=== PATIENT | female | born 1980 | race American Indian/Alaskan Native ===

== ENCOUNTER 2017-03-14 08:49 | Emergency (ER) | payer BC, OTHER ==
[2017-03-14 09:25] LABS: Basophils % (Auto) 0.4 % (0.0-1.8); Hematocrit 38.1 % (30.3-42.9); Hemoglobin 12.4 gm/dl (10.1-14.3); Mean Corpuscular HGB Conc 33 % (30-34); Mean Corpuscular Hemoglobin 28 pg (28-32); Mean Corpuscular Volume 85 fl (79-97); Platelet Count 301 K/mm3 (140-440); Red Blood Count 4.46 M/mm3 (3.65-5.03); Red Cell Distribution Width 15.2 % (13.2-15.2); White Blood Count 6.9 K/mm3 (4.5-11.0)
[2017-03-14 09:44] LABS: Anion Gap 20 mmol/L; BUN/Creatinine Ratio 18.33; Blood Urea Nitrogen 11 mg/dL (7-17); Calcium 8.6 mg/dL (8.4-10.2); Carbon Dioxide 20 mmol/L (22-30); Chloride 102.5 mmol/L (98-107); Glucose 109 mg/dL (65-100); Potassium 4.1 mmol/L (3.6-5.0); Sodium 138 mmol/L (137-145)
[2017-03-14 11:27] VITALS: BP 122/84
[2017-03-14] MEDS ORDERED: TORADOL IV ONE (11:52)
--- NOTE | 2017-03-14 11:56 | Emergency Department Report ---
ED Chest Pain HPI - General Chief Complaint: Chest Pain Stated Complaint: CHEST PAIN Time Seen by Provider: 03/14/17 11:47 Source: patient Mode of arrival: Ambulatory Limitations: No Limitations - History of Present Illness Initial Comments: Mrs. Melvin is a 37 years old female coming today with chest pain described her pain is mainly sharp right side and the left side too. She had the same episode last week she applied this is maybe from her energy drink she stop her energy drink but the symptoms remain. she denied any shortness of breath no nausea no vomiting no cough recently she stated that her work requires a lot of pushing and pulling. No other complaint at this moment MD Complaint: chest pain -: week(s) Onset: during exertion Pain Radiation: none Severity scale (0 -10): 6 Quality: sharp Consistency: intermittent Improves With: remaining still Worsens With: inspiration, movement Treatments Prior to Arrival: none - Related Data Previous Rx's Medication Instructions Recorded Last Taken Type Ondansetron [Zofran] 4 mg PO Q6HR PRN #12 tablet 10/27/13 03/06/14 08:00 Rx Ferrous Sulfate [Feosol 325 MG tab] 325 mg PO BID #60 tablet 06/16/14 Unknown Rx HYDROcodone/APAP 5-325 [[place] 1 each PO Q6HR PRN #30 tablet 06/16/14 Unknown Rx 5/325] Ibuprofen [Motrin] 800 mg PO Q8H PRN #30 tablet 06/16/14 Unknown Rx [id number]/Iron Fumarate/FA/Dss 1 each PO QDAY #30 tablet 06/16/14 Unknown Rx [ 19 Tablet] Acetaminophen/Codeine [Tylenol 1 tab PO Q6H PRN #20 tab 09/24/14 Unknown Rx /Codeine # 3 tab] Naproxen [Naprosyn] 500 mg PO BID #14 tablet 03/14/17 Unknown Rx Allergies Allergy/AdvReac Type Severity Reaction Status Date / Time No Known Allergies Allergy Verified 10/26/13 18:13 Heart Score - HEART Score History: Slightly suspicious EKG: Normal Age: < 45 Risk factors: No known risk factors Troponin: < normal limit HEART Score: 0 ED Review of Systems ROS: Stated complaint: CHEST PAIN Other details as noted in HPI Comment: All other systems reviewed and negative Constitutional: denies: chills, fever Respiratory: denies: cough, orthopnea, shortness of breath Cardiovascular: chest pain. denies: palpitations, dyspnea on exertion Gastrointestinal: denies: abdominal pain, nausea, vomiting Neurological: denies: headache, weakness, numbness ED Past Medical Hx - Past Medical History Previous Medical History?: Yes Hx Hypertension: No Hx Congestive Heart Failure: No Hx Diabetes: No Hx Deep Vein Thrombosis: No Hx Renal Disease: No Hx Sickle Cell Disease: No Hx Seizures: No Hx Asthma: Yes (2004) Hx COPD: No Hx HIV: No - Surgical History Past Surgical History?: Yes Additional Surgical History: csection - Social History Smoking Status: Never Smoker Substance Use Type: None - Medications Home Medications: Home Medications Medication Instructions Recorded Confirmed Last Taken Type Ondansetron [Zofran] 4 mg PO Q6HR PRN #12 tablet 10/27/13 06/16/14 03/06/14 08: 00 Rx Ferrous Sulfate [Feosol 325 MG tab] 325 mg PO BID #60 tablet 06/16/14 Unknown Rx HYDROcodone/APAP 5-325 [[place] 1 each PO Q6HR PRN #30 tablet 06/16/14 Unknown Rx 5/325] Ibuprofen [Motrin] 800 mg PO Q8H PRN #30 tablet 06/16/14 Unknown Rx [id number]/Iron Fumarate/FA/Dss 1 each PO QDAY #30 tablet 06/16/14 Unknown Rx [ 19 Tablet] Acetaminophen/Codeine [Tylenol 1 tab PO Q6H PRN #20 tab 09/24/14 Unknown Rx /Codeine # 3 tab] Naproxen [Naprosyn] 500 mg PO BID #14 tablet 03/14/17 Unknown Rx ED Physical Exam - General Limitations: No Limitations General appearance: alert, in no apparent distress - ENT ENT exam: Present: normal exam - Neck Neck exam: Present: normal inspection - Respiratory Respiratory exam: Present: normal lung sounds bilaterally, chest wall tenderness. Absent: respiratory distress, wheezes, rales, rhonchi - Cardiovascular Cardiovascular Exam: Present: regular rate, normal rhythm, normal heart sounds - GI/Abdominal GI/Abdominal exam: Present: soft. Absent: tenderness, guarding, rebound, rigid - Back Exam Back exam: Absent: CVA tenderness (R), CVA tenderness (L) - Neurological Exam Neurological exam: Present: alert, oriented X3, CN II-XII intact - Skin Skin exam: Present: warm, normal color ED Course Vital Signs 03/14/17 03/14/17 03/14/17 08:58 11:26 11:28 Temperature 98.8 F 98.0 F Pulse Rate 91 H 68 Respiratory 16 18 18 Rate Blood Pressure 118/83 Blood Pressure 122/84 [Right] O2 Sat by Pulse 100 100 Oximetry 03/14/17 12:21 Temperature Pulse Rate Respiratory 18 Rate Blood Pressure Blood Pressure [Right] O2 Sat by Pulse Oximetry - Reevaluation(s) Reevaluation #1: 03/14/17 14:10 Patient stated that she is feeling better no chest pain advised patient to follow-up his primary care physician for further workup ED Medical Decision Making - Lab Data Result diagrams: 03/14/17 09:14 03/14/17 09:14 Critical care attestation.: If time is entered above; I have spent that time in minutes in the direct care of this critically ill patient, excluding procedure time. ED Disposition Clinical Impression: Chest pain, Costochondritis, acute Disposition: DC-01 TO HOME OR SELFCARE Is pt being admited?: No Condition: Stable Instructions: Chest Pain (ED), Costochondritis (ED) Referrals: PRIMARY CARE, [Primary Care Provider] - 3-5 Days
== END 2017-03-14 14:27 | disposition home or self-care (01) ==
LOC: ED 08:49
DX: M94.0 Chondrocostal junction syndrome [Tietze] (principal); R07.9 Chest pain, unspecified; J45.909 Unspecified asthma, uncomplicated
CPT/HCPCS: 36415; 80048; 84484; 85025; 85379; 93005; 93010; 96374; 99284; J1885

== ENCOUNTER 2019-02-07 17:44 | Emergency (ER) | payer OTHER ==
[2019-02-07 17:51] VITALS: BP 125/85
--- NOTE | 2019-02-07 18:02 | Event Note ---
ED Screening Note ED Screening Note: pain from fibroids needs surgery co pain This initial assessment/diagnostic orders/clinical plan/treatment(s) is/are subject to change based on patients health status, clinical progression and re- assessment by fellow clinical providers in the ED. Further treatment and workup at subsequent clinical providers discretion. Patient/guardian urged not to elope from the ED as their condition may be serious if not clinically assessed and managed. Initial orders include:
[2019-02-07] MEDS ORDERED: ZOFRAN ODT PO ONE (18:14)
[2019-02-07] MEDS ORDERED: NORCO 5/325 PO ONE (18:14)
--- NOTE | 2019-02-07 18:19 | Emergency Department Report ---
ED Female HPI - General Chief complaint: Abdominal Pain Stated complaint: ABD PAIN Time Seen by Provider: 02/07/19 18:02 Source: patient Mode of arrival: Ambulatory Limitations: No Limitations - History of Present Illness Initial comments: patient is a 38-year-old female who presents to the emergency room with complaints of lower back pain and suprapubic abdominal discomfort for the last couple days. States she is currently on her menstrual cycle and has been for the last 3 days. She has a past medical history of uterine fibroids and has heavy cycles. She states her current cycle has been heavy as well and her cycles typically lasts around 2 weeks. she has associated urinary frequency. She denies any dysuria or vaginal discharge. Does not report any nausea, vomiting, diarrhea or fever. Sates her LINE RUNNER is Dr. Copeland. pt states Dr. James parker, LINE RUNNER recommended surgery she states she is planning to have a procedure in the next few months. She states she has been taking ibuprofen without much relief. She states she was taking Tylenol 3 prescribed by her LINE [employer]NER but states she has taken them all. She denies any other past medical history or allergies to medications. - Related Data Previous Rx's Medication Instructions Recorded Last Taken Type Ondansetron [Zofran] 4 mg PO Q6HR PRN #12 tablet 10/27/13 03/06/14 08:00 Rx Ferrous Sulfate [Feosol 325 MG tab] 325 mg PO BID #60 tablet 06/16/14 Unknown Rx HYDROcodone/APAP 5-325 [[place] 1 each PO Q6HR PRN #30 tablet 06/16/14 Unknown Rx 5/325] Ibuprofen [Motrin] 800 mg PO Q8H PRN #30 tablet 06/16/14 Unknown Rx [id number]/Iron Fum/Folic/Docusate 1 each PO QDAY #30 tablet 06/16/14 Unknown Rx [ 19 Tablet] Acetaminophen/Codeine [Tylenol 1 tab PO Q6H PRN #20 tab 09/24/14 Unknown Rx /Codeine # 3 tab] Naproxen [Naprosyn] 500 mg PO BID #14 tablet 03/14/17 Unknown Rx Amoxicillin/Potassium Clav 1 each PO BID #20 tablet 06/27/18 Unknown Rx [Augmentin 875-125 Tablet] Brompheniramine/Pseudoephed/Dm 10 ml PO TID #473 syrup 06/27/18 Unknown Rx [Zhktcbrmev-Ohkincshqxh-Do Syr] predniSONE [Deltasone] 20 mg PO QDAY #5 tab 06/27/18 Unknown Rx Allergies Allergy/AdvReac Type Severity Reaction Status Date / Time No Known Allergies Allergy Verified 02/07/19 17:45 ED Review of Systems ROS: Stated complaint: ABD PAIN Other details as noted in HPI Comment: All other systems reviewed and negative ED Past Medical Hx - Past Medical History Hx Hypertension: No Hx Congestive Heart Failure: No Hx Diabetes: No Hx Deep Vein Thrombosis: No Hx Renal Disease: No Hx Sickle Cell Disease: No Hx Seizures: No Hx Asthma: Yes Hx COPD: No Hx HIV: No - Surgical History Additional Surgical History: csection - Social History Smoking Status: Never Smoker Substance Use Type: None - Medications Home Medications: Home Medications Medication Instructions Recorded Confirmed Last Taken Type Ondansetron [Zofran] 4 mg PO Q6HR PRN #12 tablet 10/27/13 06/16/14 03/06/14 08:00 Rx Ferrous Sulfate [Feosol 325 MG tab] 325 mg PO BID #60 tablet 06/16/14 Unknown Rx HYDROcodone/APAP 5-325 [[place] 1 each PO Q6HR PRN #30 tablet 06/16/14 Unknown Rx 5/325] Ibuprofen [Motrin] 800 mg PO Q8H PRN #30 tablet 06/16/14 Unknown Rx [id number]/Iron Fum/Folic/Docusate 1 each PO QDAY #30 tablet 06/16/14 Unknown Rx [ 19 Tablet] Acetaminophen/Codeine [Tylenol 1 tab PO Q6H PRN #20 tab 09/24/14 Unknown Rx /Codeine # 3 tab] Naproxen [Naprosyn] 500 mg PO BID #14 tablet 03/14/17 Unknown Rx Amoxicillin/Potassium Clav 1 each PO BID #20 tablet 06/27/18 Unknown Rx [Augmentin 875-125 Tablet] Brompheniramine/Pseudoephed/Dm 10 ml PO TID #473 syrup 06/27/18 Unknown Rx [Fuhgdjiegs-Suninoosflq-Ew Syr] predniSONE [Deltasone] 20 mg PO QDAY #5 tab 06/27/18 Unknown Rx ED Physical Exam - General Limitations: No Limitations General appearance: alert, other (tearful) - Head Head exam: Present: atraumatic, normocephalic - Eye Eye exam: Present: normal appearance, PERRL - ENT ENT exam: Present: mucous membranes moist - Respiratory Respiratory exam: Present: normal lung sounds bilaterally. Absent: respiratory distress, wheezes, rales, rhonchi, stridor, chest wall tenderness, accessory muscle use, decreased breath sounds, prolonged expiratory - Cardiovascular Cardiovascular Exam: Present: regular rate, normal rhythm, normal heart sounds. Absent: systolic murmur, diastolic murmur, rubs, gallop - GI/Abdominal GI/Abdominal exam: Present: soft, normal bowel sounds. Absent: distended, tenderness, guarding, rebound, rigid - Back Exam Back exam: Absent: CVA tenderness (R), CVA tenderness (L) - Neurological Exam Neurological exam: Present: alert, oriented X3 - Psychiatric Psychiatric exam: Present: normal affect, normal mood - Skin Skin exam: Present: warm, dry, intact ED Course Vital Signs 02/07/19 17:49 Temperature 98 F Pulse Rate 80 Respiratory 16 Rate Blood Pressure 125/85 [Left] O2 Sat by Pulse 100 Oximetry ED Medical Decision Making - Lab Data Result diagrams: 02/07/19 18:19 02/07/19 18:19 Lab Results 02/07/19 02/07/19 02/07/19 Range/Units 18:03 18:19 18:19 WBC 5.8 (4.5-11.0) K/mm3 RBC 4.05 (3.65-5.03) M/mm3 Hgb 11.8 (10.1-14.3) gm/dl Hct 35.4 (30.3-42.9) % MCV 87 (79-97) fl MCH 29 (28-32) pg MCHC 33 (30-34) % RDW 14.7 (13.2-15.2) % Plt Count 368 (140-440) K/mm3 Lymph % (Auto) 28.5 (13.4-35.0) % [place] % (Auto) 6.4 (0.0-7.3) % Eos % (Auto) 1.1 (0.0-4.3) % Baso % (Auto) 0.6 (0.0-1.8) % Lymph # 1.6 (1.2-5.4) K/mm3 [place] # 0.4 (0.0-0.8) K/mm3 Eos # 0.1 (0.0-0.4) K/mm3 Baso # 0.0 (0.0-0.1) K/mm3 Seg Neutrophils % 63.4 (40.0-70.0) % Seg Neutrophils # 3.7 (1.8-7.7) K/mm3 Sodium 138 (137-145) mmol/L Potassium 4.6 (3.6-5.0) mmol/L Chloride 103.9 (98-107) mmol/L Carbon Dioxide 25 (22-30) mmol/L Anion Gap 14 mmol/L BUN 6 L (7-17) mg/dL Creatinine 0.7 (0.7-1.2) mg/dL Estimated GFR > 60 ml/min BUN/Creatinine Ratio 9 % Glucose 94 (65-100) mg/dL Calcium 9.2 (8.4-10.2) mg/dL Total Bilirubin 1.20 (0.1-1.2) mg/dL AST 16 (5-40) units/L ALT < 5 L (7-56) units/L Alkaline Phosphatase 52 (35-129) units/L Total Protein 7.0 (6.3-8.2) g/dL Albumin 3.9 (3.9-5) g/dL Albumin/Globulin Ratio 1.3 % Urine Color Yellow (Yellow) Urine Turbidity Slightly-cloudy (Clear) Urine pH 5.0 (5.0-7.0) Ur Specific [place] 1.025 (1.003-1.030) Urine Protein <15 mg/dl (Negative) mg/dL Urine Glucose (UA) Neg (Negative) mg/dL Urine Ketones Tr (Negative) mg/dL Urine Blood Neg (Negative) Urine Nitrite Neg (Negative) Urine Bilirubin Neg (Negative) Urine Urobilinogen < 2.0 (<2.0) mg/dL Ur Leukocyte Esterase Neg (Negative) Urine WBC (Auto) 2.0 (0.0-6.0) /HPF Urine RBC (Auto) 4.0 (0.0-6.0) /HPF U Epithel Cells (Auto) 5.0 (0-13.0) /HPF Urine Bacteria (Auto) 1+ (Negative) /HPF Urine Mucus 1+ /HPF Urine HCG, Qual Negative (Negative) Vital Signs 02/07/19 17:49 Temperature 98 F Pulse Rate 80 Respiratory 16 Rate Blood Pressure 125/85 [Left] O2 Sat by Pulse 100 Oximetry - Medical Decision Making patient is a 38-year-old female who presents to the emergency room with complaints of lower back pain and suprapubic abdominal discomfort for the last couple days. States she is currently on her menstrual cycle and has been for the last 3 days. She has a past medical history of uterine fibroids and has heavy cycles. She states her current cycle has been heavy as well and her cycles typically lasts around 2 weeks. she has associated urinary frequency. She denies any dysuria or vaginal discharge. Does not report any nausea, vomiting, diarrhea or fever. Sates her LINE RUNNER is Dr. Copeland. pt states Dr. Betts, LINE RUNNER recommended surgery she states she is planning to have a procedure in the next few months. She states she has been taking ibuprofen without much relief. She states she was taking Tylenol 3 prescribed by her LINE [employer]NER but states she has taken them all. She denies any other past medical history or allergies to medications. no abd tenderness on exam, no CVAT. UA is normal. Labs WNL. H/H normal. pts pain treated while in the emergency department, states her pain improved s/p meds. advised pt to take tylenol, midol, or ibuprofen for her discomfort. follow up with her [employer]NER in the next 2-3 days. return to the emergency room for any new or worsening symptoms. - Differential Diagnosis fibroids, UTI, ovarian cyst, dysmenorrhea, menorrhagia Critical care attestation.: If time is entered above; I have spent that time in minutes in the direct care of this critically ill patient, excluding procedure time. ED Disposition Clinical Impression: Dysmenorrhea Menorrhagia Qualifiers: Menorrahagia type: with regular cycle Qualified Code(s): N92.0 - Excessive and frequent menstruation with regular cycle Disposition: - TO HOME OR SELFCARE Is pt being admited?: No Does the pt Need Aspirin: No Condition: Stable Instructions: Dysmenorrhea (ED), Menorrhagia (ED) Additional Instructions: May take tylenol, midol, or ibuprofen for your discomfort. follow up with your [employer]NER in the next 2-3 days. return to the emergency room for any new or worsening symptoms. Referrals: LIZETTE COPELAND MD [Primary Care Provider] - 2-3 Days BRYN BETTS MD [Staff Physician] - 2-3 Days Time of Disposition: 19:00 Print Language: UZBEK
[2019-02-07 18:27] LABS: Bacteria,Urine 1+ /HPF (Negative); Bilirubin,Urine NEG (Negative); Blood,Urine NEG (Negative); Color,Urine Yellow (Yellow); Mucus,Urine 1+ /HPF; Protein,Urine <15 mg/dL mg/dL (Negative); Urobilinogen,Urine < 2.0 mg/dL (<2.0)
[2019-02-07 18:29] LABS: HCG Qualitative,Urine Negative (Negative)
[2019-02-07 18:31] LABS: Basophils % (Auto) 0.6 % (0.0-1.8); Eosinophils # (Auto) 0.1 K/mm3 (0.0-0.4); Eosinophils % (Auto) 1.1 % (0.0-4.3); Hematocrit 35.4 % (30.3-42.9); Hemoglobin 11.8 gm/dl (10.1-14.3); Lymphocytes # (Auto) 1.6 K/mm3 (1.2-5.4); Lymphocytes % (Auto) 28.5 % (13.4-35.0); Mean Corpuscular HGB Conc 33 % (30-34); Mean Corpuscular Volume 87 fl (79-97); Monocytes # (Auto) 0.4 K/mm3 (0.0-0.8); Monocytes % (Auto) 6.4 % (0.0-7.3); Platelet Count 368 K/mm3 (140-440); Red Blood Count 4.05 M/mm3 (3.65-5.03); Red Cell Distribution Width 14.7 % (13.2-15.2)
[2019-02-07 18:51] LABS: Albumin 3.9 g/dL (3.9-5); BUN/Creatinine Ratio 9; Blood Urea Nitrogen 6 mg/dL (7-17); Calcium 9.2 mg/dL (8.4-10.2); Hemolysis Index 10
[2019-02-07 18:52] LABS: Alanine Aminotransferase < 5 units/L (7-56)
== END 2019-02-07 19:07 | disposition home or self-care (01) ==
LOC: ED 17:44
DX: N92.0 Excessive and frequent menstruation with regular cycle (principal); J45.909 Unspecified asthma, uncomplicated; Z79.899 Other long term (current) drug therapy
CPT/HCPCS: 36415; 80053; 81001; 81025; 85025; Q0162

== ENCOUNTER 2019-03-02 00:26 | Emergency (ER) | payer OTHER ==
[2019-03-02 01:28] VITALS: BP 118/82
[2019-03-02] MEDS ORDERED: IBUPROFEN PO ONE (02:21)
[2019-03-02] MEDS ORDERED: NORCO 5/325 PO ONE (02:21)
--- NOTE | 2019-03-02 02:23 | Emergency Department Report ---
ED Female HPI - General Chief complaint: Abdominal Pain Stated complaint: ABD PAIN Time Seen by Provider: 03/02/19 02:20 Source: patient Mode of arrival: Ambulatory Limitations: No Limitations - History of Present Illness Initial comments: 38-year-old -Prydeinig female presents to the emergency room for lower abdominal pain. Patient states that the pains at 1010. Patient reports that she had unprotected sex 3 weeks ago and has constant burning sensation in white discharge. Patient patient has a past medical history of asthma. MD Complaint: vaginal discharge, pelvic pain, possible STD Onset/Timin -: week(s) Radiation: suprapubic Severity: severe Severity scale (0 -10): 10 Quality: aching Consistency: constant Improves with: none Worsens with: none Are you Now?: No - Related Data Previous Rx's Medication Instructions Recorded Last Taken Type Ondansetron [Zofran] 4 mg PO Q6HR PRN #12 tablet 10/27/13 03/06/14 08:00 Rx Ferrous Sulfate [Feosol 325 MG tab] 325 mg PO BID #60 tablet 06/16/14 Unknown Rx HYDROcodone/APAP 5-325 [[place] 1 each PO Q6HR PRN #30 tablet 06/16/14 Unknown Rx 5/325] Ibuprofen [Motrin] 800 mg PO Q8H PRN #30 tablet 06/16/14 Unknown Rx [id number]/Iron Fum/Folic/Docusate 1 each PO QDAY #30 tablet 06/16/14 Unknown Rx [ 19 Tablet] Acetaminophen/Codeine [Tylenol 1 tab PO Q6H PRN #20 tab 09/24/14 Unknown Rx /Codeine # 3 tab] Amoxicillin/Potassium Clav 1 each PO BID #20 tablet 06/27/18 Unknown Rx [Augmentin 875-125 Tablet] Brompheniramine/Pseudoephed/Dm 10 ml PO TID #473 syrup 06/27/18 Unknown Rx [Qufbpfcxev-Vceiswfmrrg-Tv Syr] predniSONE [Deltasone] 20 mg PO QDAY #5 tab 06/27/18 Unknown Rx Naproxen [Naprosyn TAB] 500 mg PO BID #14 tablet 03/02/19 Unknown Rx metroNIDAZOLE [Flagyl] 500 mg PO Q8HR 7 Days #21 tablet 03/02/19 Unknown Rx Allergies Allergy/AdvReac Type Severity Reaction Status Date / Time No Known Allergies Allergy Verified 02/07/19 17:45 ED Review of Systems ROS: Stated complaint: ABD PAIN Other details as noted in HPI ED Past Medical Hx - Past Medical History Previous Medical History?: Yes Hx Hypertension: No Hx Congestive Heart Failure: No Hx Diabetes: No Hx Deep Vein Thrombosis: No Hx Renal Disease: No Hx Sickle Cell Disease: No Hx Seizures: No Hx Asthma: Yes Hx COPD: No Hx HIV: No - Surgical History Past Surgical History?: Yes Additional Surgical History: csection - Social History Smoking Status: Never Smoker Substance Use Type: None - Medications Home Medications: Home Medications Medication Instructions Recorded Confirmed Last Taken Type Ondansetron [Zofran] 4 mg PO Q6HR PRN #12 tablet 10/27/13 06/16/14 03/06/14 08:00 Rx Ferrous Sulfate [Feosol 325 MG tab] 325 mg PO BID #60 tablet 06/16/14 Unknown Rx HYDROcodone/APAP 5-325 [[place] 1 each PO Q6HR PRN #30 tablet 06/16/14 Unknown Rx 5/325] Ibuprofen [Motrin] 800 mg PO Q8H PRN #30 tablet 06/16/14 Unknown Rx [id number]/Iron Fum/Folic/Docusate 1 each PO QDAY #30 tablet 06/16/14 Unknown Rx [ 19 Tablet] Acetaminophen/Codeine [Tylenol 1 tab PO Q6H PRN #20 tab 09/24/14 Unknown Rx /Codeine # 3 tab] Amoxicillin/Potassium Clav 1 each PO BID #20 tablet 06/27/18 Unknown Rx [Augmentin 875-125 Tablet] Brompheniramine/Pseudoephed/Dm 10 ml PO TID #473 syrup 06/27/18 Unknown Rx [Pumslarpgd-Khoqiudhxnm-Lx Syr] predniSONE [Deltasone] 20 mg PO QDAY #5 tab 06/27/18 Unknown Rx Naproxen [Naprosyn TAB] 500 mg PO BID #14 tablet 03/02/19 Unknown Rx metroNIDAZOLE [Flagyl] 500 mg PO Q8HR 7 Days #21 tablet 03/02/19 Unknown Rx ED Physical Exam - General Limitations: No Limitations ED Course Vital Signs 03/02/19 01:25 Temperature 98.8 F Pulse Rate 86 Respiratory 18 Rate Blood Pressure 118/82 O2 Sat by Pulse 100 Oximetry ED Medical Decision Making - Lab Data Laboratory Results - last 72 hr 03/02/19 Unknown Urine Color Yellow Urine Turbidity Clear Urine pH 5.0 Ur Specific [place] 1.017 Urine Protein <15 mg/dl Urine Glucose (UA) Neg Urine Ketones Neg Urine Blood Neg Urine Nitrite Neg Urine Bilirubin Neg Urine Urobilinogen < 2.0 Ur Leukocyte Esterase Neg Urine WBC (Auto) 1.0 Urine RBC (Auto) 3.0 U Epithel Cells (Auto) 2.0 Urine HCG, Qual Negative - Medical Decision Making 38-year-old -Prydeinig female presents to the emergency room for lower abdominal pain. Patient states that the pains at 1010. Patient reports that she had unprotected sex 3 weeks ago and has constant burning sensation in white discharge. Patient patient has a past medical history of asthma. We'll treat patient for pain with narcotic ibuprofen. Female exam was done and wet prep were sent as well as gonorrhea and chlamydia. Wet prep came back greater than 20% to self. Patient was treated with Rocephin and azithromycin and a prescription for Flagyl 500 mg 3 times a day for 7 days. Critical care attestation.: If time is entered above; I have spent that time in minutes in the direct care of this critically ill patient, excluding procedure time. ED Disposition Clinical Impression: BV (bacterial vaginosis) Disposition: DC-01 TO HOME OR SELFCARE Is pt being admited?: No Does the pt Need Aspirin: No Condition: Stable Instructions: Abdominal Pain (ED), Bacterial Vaginosis (ED) Additional Instructions: Please can lead to her antibiotics as prescribed. Take pain medication as neede d. A few likely results for gonorrhea and chlamydia testing can bring your picture ID to medical records N5 to 7 days to obtain the results. We'll treating presumptively for STDs. Prescriptions: metroNIDAZOLE [Flagyl] 500 mg PO Q8HR 7 Days #21 tablet Naproxen [Naprosyn TAB] 500 mg PO BID #14 tablet Forms: STI Treatment and Prevention
[2019-03-02 03:25] LABS: Bilirubin,Urine NEG (Negative); Blood,Urine NEG (Negative); Color,Urine Yellow (Yellow); Protein,Urine <15 mg/dL mg/dL (Negative); Urobilinogen,Urine < 2.0 mg/dL (<2.0)
[2019-03-02 03:40] LABS: HCG Qualitative,Urine Negative (Negative)
[2019-03-02] MEDS ORDERED: XYLOCAINE 1% MPF 5 mL INFILTRATI ONE (04:06)
[2019-03-02] MEDS ORDERED: ROCEPHIN IM ONE (04:06)
[2019-03-02] MEDS ORDERED: ZITHROMAX PO ONE (04:06)
== END 2019-03-02 05:20 | disposition home or self-care (01) ==
LOC: ED 00:26
DX: N76.0 Acute vaginitis (principal); B96.89 Other specified bacterial agents as the cause of diseases classified elsewhere; J45.909 Unspecified asthma, uncomplicated; Z79.899 Other long term (current) drug therapy
CPT/HCPCS: 81001; 81025; 87210; 87591; 96372; 99283; J0696

== ENCOUNTER 2019-03-18 17:44 | Emergency (ER) | payer OTHER ==
--- NOTE | 2019-03-18 18:18 | Emergency Department Report ---
Blank Doc - Documentation Documentation: This is a 39-year-old female that presents with abdominal pain. HX of gastric ulcers. This initial assessment/diagnostic orders/clinical plan/treatment(s) is/are subject to change based on patient's health status, clinical progression and re- assessment by fellow clinical providers in the ED. Further treatment and workup at subsequent clinical providers discretion. Patient/guardians urged not to elope from the ED as their condition may be serious if not clinically assessed and managed. Initial orders include: 1- Patient sent to [facility] for further evaluation and treatment 2- UA 3- labs
[2019-03-18 18:52] LABS: Basophils # (Auto) 0.1 K/mm3 (0.0-0.1); Basophils % (Auto) 0.9 % (0.0-1.8); Eosinophils # (Auto) 0.1 K/mm3 (0.0-0.4); Eosinophils % (Auto) 1.1 % (0.0-4.3); Hematocrit 33.5 % (30.3-42.9); Lymphocytes # (Auto) 2.4 K/mm3 (1.2-5.4); Lymphocytes % (Auto) 32.4 % (13.4-35.0); Mean Corpuscular HGB Conc 33 % (30-34); Mean Corpuscular Volume 84 fl (79-97); Monocytes # (Auto) 0.5 K/mm3 (0.0-0.8); Monocytes % (Auto) 7.1 % (0.0-7.3); Platelet Count 323 K/mm3 (140-440); Red Blood Count 3.99 M/mm3 (3.65-5.03)
[2019-03-18 19:23] LABS: Bilirubin,Urine NEG (Negative); Blood,Urine NEG (Negative); Color,Urine Yellow (Yellow); Mucus,Urine FEW /HPF; Protein,Urine <15 mg/dL mg/dL (Negative); RBC,Urine < 1.0 /HPF (0.0-6.0); Urobilinogen,Urine < 2.0 mg/dL (<2.0); WBC,Urine < 1.0 /HPF (0.0-6.0)
[2019-03-18 19:39] LABS: Alanine Aminotransferase 13 units/L (7-56); BUN/Creatinine Ratio 10; Blood Urea Nitrogen 6 mg/dL (7-17); Hemolysis Index 9
[2019-03-18] MEDS ORDERED: ALUM-MAG HYDROX-SIMETH 200-200-20MG/5ML PO ONE (23:07)
[2019-03-18] MEDS ORDERED: LIDOCAINE VISCOUS 2% PO ONE (23:10)
[2019-03-18] MEDS ORDERED: ALUM-MAG HYDROX-SIMETH 200-200-20MG/5ML ONE (23:28)
[2019-03-18] MEDS ORDERED: LIDOCAINE VISCOUS 2% ONE (23:28)
--- NOTE | 2019-03-18 23:35 | Emergency Department Report ---
HPI - General Chief Complaint: Abdominal Pain Time Seen by Provider: 03/18/19 18:10 - HPI HPI: 39-year-old female presents to the emergency department with a complaint of epigastric pain that has been going on for the past 24 hours, since last night. It is a intermittent sharp and burning pain that happens just about every few seconds. This morning the patient thought she just might be hungry so she ate some food and that seemed to help with the pain for a short while. She has a history of previous gastric ulcers. She has not taken anything for her symptoms prior to arrival. Denies any tobacco or illicit drug use. She follows with her [employer] OPERATOR, Dr. Jared Copeland, for primary care needs. ED Past Medical Hx - Past Medical History Previous Medical History?: Yes Hx Hypertension: No Hx Congestive Heart Failure: No Hx Diabetes: No Hx Deep Vein Thrombosis: No Hx Renal Disease: No Hx Sickle Cell Disease: No Hx Seizures: No Hx Asthma: Yes Hx COPD: No Hx HIV: No - Surgical History Past Surgical History?: Yes Additional Surgical History: csection - Social History Smoking Status: Never Smoker Substance Use Type: None - Medications Home Medications: Home Medications Medication Instructions Recorded Confirmed Last Taken Type Ondansetron [Zofran] 4 mg PO Q6HR PRN #12 tablet 10/27/13 06/16/14 03/06/14 08:00 Rx Ferrous Sulfate [Feosol 325 MG tab] 325 mg PO BID #60 tablet 06/16/14 Unknown Rx Ibuprofen [Motrin] 800 mg PO Q8H PRN #30 tablet 06/16/14 Unknown Rx [id number]/Iron Fum/Folic/Docusate 1 each PO QDAY #30 tablet 06/16/14 Unknown Rx [ 19 Tablet] Acetaminophen/Codeine [Tylenol 1 tab PO Q6H PRN #20 tab 09/24/14 Unknown Rx /Codeine # 3 tab] Amoxicillin/Potassium Clav 1 each PO BID #20 tablet 06/27/18 Unknown Rx [Augmentin 875-125 Tablet] Brompheniramine/Pseudoephed/Dm 10 ml PO TID #473 syrup 06/27/18 Unknown Rx [Thsrmtfodh-Ipdhyvwvouo-Le Syr] predniSONE [Deltasone] 20 mg PO QDAY #5 tab 06/27/18 Unknown Rx Naproxen [Naprosyn TAB] 500 mg PO BID #14 tablet 03/02/19 Unknown Rx metroNIDAZOLE [Flagyl] 500 mg PO Q8HR 7 Days #21 tablet 03/02/19 Unknown Rx Famotidine [Pepcid] 20 mg PO BID #14 tablet 03/19/19 Unknown Rx HYDROcodone/APAP 5-325 [[place] 1 each PO Q6HR PRN #10 tablet 03/19/19 Unknown Rx 5-325 mg TAB] ED Review of Systems ROS: Stated complaint: ABD PAIN Other details as noted in HPI Comment: All other systems reviewed and negative Constitutional: denies: chills, fever Eyes: denies: eye pain, vision change ENT: denies: ear pain, throat pain Respiratory: denies: cough, shortness of breath Cardiovascular: denies: chest pain, palpitations Gastrointestinal: abdominal pain. denies: vomiting Genitourinary: denies: urgency, dysuria Musculoskeletal: denies: back pain, arthralgia Skin: denies: rash, lesions Neurological: denies: headache, weakness Physical Exam - Physical Exam Vital Signs: Vital Signs 03/18/19 03/18/19 18:09 23:16 Temperature 98.7 F 98.9 F Pulse Rate 81 78 Respiratory 20 18 Rate Blood Pressure 120/81 Blood Pressure 138/96 [Left] O2 Sat by Pulse 100 100 Oximetry Physical Exam: GENERAL: The patient is well-developed well-nourished. HENT: Normocephalic. Atraumatic. Patient has moist mucous membranes. EYES: Extraocular motions are intact. NECK: Supple. Trachea is midline. CHEST/LUNGS: Clear to auscultation. There is no respiratory distress noted. HEART/CARDIOVASCULAR: Regular. There is no tachycardia. There is no murmur. ABDOMEN: Abdomen is soft. Epigastric tenderness to palpation. No guarding.. Patient has normal bowel sounds. There is no abdominal distention. SKIN: Skin is warm and dry. NEURO: The patient is awake, alert, and oriented. The patient is cooperative. The patient has no focal neurologic deficits. The patient has normal speech. MUSCULOSKELETAL: There is no tenderness or deformity. There is no limitation range of motion. There is no evidence of acute injury. ED Course Vital Signs 03/18/19 03/18/19 18:09 23:16 Temperature 98.7 F 98.9 F Pulse Rate 81 78 Respiratory 20 18 Rate Blood Pressure 120/81 Blood Pressure 138/96 [Left] O2 Sat by Pulse 100 100 Oximetry ED Medical Decision Making - Lab Data Result diagrams: 03/18/19 18:23 03/18/19 18:23 - Radiology Data Radiology results: report reviewed, image reviewed interpreted by me: Abdominal x-ray shows increased stool volume and some nonspecific gas. CT of the abdomen and pelvis with IV contrast shows some signs of enteritis to the distal small bowel, ovarian cysts and what appears to be a bicornuate uterus. - Medical Decision Making This patient presented with some epigastric abdominal pain that started about 24 hours ago. It is spasmodic and intermittent. She has some tenderness to palpation to the epigastrium but otherwise the abdomen is soft, nondistended and nontoxic in appearance. She had some transient improvement with a GI cocktail. Labs have been unremarkable. CT scan of the abdomen and pelvis with IV contrast was read by radiology, and I was given a report over the phone, as showing some signs of enteritis, ovarian cyst, and some type of uterine abnormality that could be consistent with a bicornuate uterus. Her vital signs were stable throughout the course. The patient appears safe for discharge home at this time. She has been given a referral for gastroenterology and a prescription for some Pepcid and pain medication. She will return to the ER with any worsening of her symptoms or any acute distress. - Differential Diagnosis GERD, gastric ulcer, esophagitis, malignancy Critical Care Time: No Critical care attestation.: If time is entered above; I have spent that time in minutes in the direct care of this critically ill patient, excluding procedure time. ED Disposition Clinical Impression: Epigastric abdominal pain Ovarian cyst Qualifiers: Laterality: unspecified laterality Qualified Code(s): N83.209 - Unspecified ovarian cyst, unspecified side Disposition: DC-01 TO HOME OR SELFCARE Is pt being admited?: No Condition: Stable Instructions: Ovarian Cyst (ED), Abdominal Pain (ED) Additional Instructions: Please follow up with a primary care physician in the next few days. I have given you a referral for a local ventilation equipment tender, Dr. Copeland, to follow up regarding your epigastric abdominal pain. Return to the emergency Department with any worsening of your symptoms or any acute distress. You have been prescribed a medication that is sedating and therefore should not be taken prior to driving, working, and responsible for children and in no way should be mixed with alcohol of any quantity. Prescriptions: HYDROcodone/APAP 5-325 [[place] 5-325 mg TAB] 1 each PO Q6HR PRN #10 tablet PRN Reason: Pain Famotidine [Pepcid] 20 mg PO BID #14 tablet Referrals: LIZETTE COPELAND MD [Primary Care Provider] - 2-3 Days NEL COPELAND MD [Staff Physician] - 2-3 Days Time of Disposition: 03:09
[2019-03-19] MEDS ORDERED: PEPCID IV ONE ×2 (01:38→01:42)
[2019-03-19 02:56] VITALS: BP 113/84
--- NOTE | 2019-03-21 12:51 | Cat Scan Report ---
CT ABDOMEN AND PELVIS WITH CONTRAST HISTORY: [03/19/2019 4:21 AM Raz Justin]UPPER ABDOMINAL PAIN. CONSTIPATION.. COMPARISON: None. TECHNIQUE: CT images of the abdomen and pelvis were obtained following administration of intravenous contrast. All CT scans at this location are performed using CT dose reduction for ALARA by means of automated exposure control. CONTRAST: 100 ml of intravenous contrast administered. FINDINGS: Lungs/bones: Lung bases are clear. There is no acute osseous abnormality or significant DJD. Abdomen/pelvis: The liver, gallbladder, spleen, pancreas, adrenals, kidneys, and proximal GI tract a ppear unremarkable. Urinary bladder is unremarkable. There are bilateral ovarian cysts, largest on the left and simple in appearance measuring 2.8 cm on image #130. A bicornuate uterus is incidentally noted. No acute colon ic abnormality. The appendix and terminal ileum appear normal. IMPRESSION: 1. No acute abnormality identified. 2. Incidental findings as above. Signer Name: Carmine Fleming MD Signed: 03/19/2019 5:37 AM Workstation Name: [id number]
--- NOTE | 2019-03-21 14:04 | XRay Report ---
ABDOMEN 2 VIEW(S) INDICATION / CLINICAL INFORMATION: Acute generalized abdominal pain. COMPARISON: None available. FINDINGS: TUBES / LINES: None. BOWEL GAS PATTERN: Moderate proximal colonic stool burden. Otherwise no significant abnormality. FREE AIR / EXTRALUMINAL GAS: None seen. ADDITIONAL FINDINGS: Clear lung bases. IMPRESSION: 1. Probable constipation. Nonobstructive bowel gas pattern. Signer Name: Carmine Fleming MD Signed: 03/18/2019 11:55 PM Workstation Name: [id number]
== END 2019-03-19 03:15 | disposition home or self-care (01) ==
LOC: ED 17:44
DX: N83.209 Unspecified ovarian cyst, unspecified side (principal); J45.909 Unspecified asthma, uncomplicated; Z98.890 Other specified postprocedural states; Z79.899 Other long term (current) drug therapy
CPT/HCPCS: 36415; 74019; 74177; 80053; 81001; 83690; 84703; 85025; 96374; 99284; Q9967

== ENCOUNTER 2019-05-13 13:36 | Emergency (ER) | payer OTHER ==
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
[2019-05-13] MEDS ORDERED: IBUPROFEN 800 MG TAB PO ONE (16:12)
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
== END 2019-05-13 16:27 | disposition home or self-care (01) ==
LOC: ED 13:36
DX: S16.1XXA Strain of muscle, fascia and tendon at neck level, initial encounter (principal); S39.012A Strain of muscle, fascia and tendon of lower back, initial encounter; J45.909 Unspecified asthma, uncomplicated; Z79.899 Other long term (current) drug therapy; V49.49XA Driver injured in collision with other motor vehicles in traffic accident, initial encounter; Y93.89 Activity, other specified; Y92.410 Unspecified street and highway as the place of occurrence of the external cause; Y99.8 Other external cause status
CPT/HCPCS: 72040; 72100

== ENCOUNTER 2020-03-24 03:19 | Emergency (ER) | payer OTHER ==
[2020-03-24 04:09] LABS: Basophils # (Auto) 0.1 K/mm3 (0.0-0.1); Basophils % (Auto) 0.9 % (0.0-1.8); Eosinophils # (Auto) 0.2 K/mm3 (0.0-0.4); Eosinophils % (Auto) 3.5 % (0.0-4.3); Hematocrit 34.3 % (30.3-42.9); Hemoglobin 11.2 gm/dl (10.1-14.3); Lymphocytes # (Auto) 2.2 K/mm3 (1.2-5.4); Lymphocytes % (Auto) 31.6 % (13.4-35.0); Mean Corpuscular HGB Conc 33 % (30-34); Mean Corpuscular Volume 82 fl (79-97); Monocytes # (Auto) 0.6 K/mm3 (0.0-0.8); Monocytes % (Auto) 8.7 % (0.0-7.3); Platelet Count 367 K/mm3 (140-440); Red Blood Count 4.19 M/mm3 (3.65-5.03); Red Cell Distribution Width 16.5 % (13.2-15.2)
[2020-03-24 04:26] LABS: Alanine Aminotransferase 12 units/L (7-56); Albumin 4.1 g/dL (3.9-5); Blood Urea Nitrogen 7 mg/dL (7-17); Hemolysis Index 4
[2020-03-24 04:27] LABS: BUN/Creatinine Ratio 12
[2020-03-24 05:08] LABS: Color,Urine Yellow (Yellow)
[2020-03-24 05:09] LABS: Bilirubin,Urine NEG (Negative); Blood,Urine NEG (Negative); Mucus,Urine FEW /HPF; Protein,Urine <15 mg/dL mg/dL (Negative); Urobilinogen,Urine < 2.0 mg/dL (<2.0); WBC,Urine < 1.0 /HPF (0.0-6.0)
--- NOTE | 2020-03-24 08:02 | Emergency Department Report ---
ED Female HPI - General Chief complaint: Abdominal Pain Stated complaint: ABD PAIN Time Seen by Provider: 03/24/20 07:53 Source: patient Mode of arrival: Ambulatory Limitations: No Limitations - History of Present Illness Initial comments: This is a 40-year-old female with a past medical history of fibroids who presents the ED complaining of history of recent pelvic pain that worsened last night. Patient states that last week she was diagnosed at her clinic with trichomoniasis which she was given metronidazole which she has taken to full completion. Patient states she was also tested for gonorrhea and chlamydia which were negative. Patient states she got the results through her portal. Patient states otherwise normal well exam and history. She denies fever/chills/nausea vomiting/abnormal vaginal bleeding/vaginal discharge/dysuria. Patient states last menstrual period was last week. MD Complaint: pelvic pain Severity scale (0 -10): 6 Are you Now?: No - Related Data Previous Rx's Medication Instructions Recorded Last Taken Type Ondansetron [Zofran] 4 mg PO Q6HR PRN #12 tablet 10/27/13 03/06/14 08:00 Rx Ferrous Sulfate [Feosol 325 MG tab] 325 mg PO BID #60 tablet 06/16/14 Unknown Rx Ibuprofen [Motrin] 800 mg PO Q8H PRN #30 tablet 06/16/14 Unknown Rx Atc376/Iron Fum/Folic/Docusate 1 each PO QDAY #30 tablet 06/16/14 Unknown Rx [ 19 Tablet] Acetaminophen/Codeine [Tylenol 1 tab PO Q6H PRN #20 tab 09/24/14 Unknown Rx /Codeine # 3 tab] Amoxicillin/Potassium Clav 1 each PO BID #20 tablet 06/27/18 Unknown Rx [Augmentin 875-125 Tablet] Brompheniramine/Pseudoephed/Dm 10 ml PO TID #473 syrup 06/27/18 Unknown Rx [Tbkemmptwp-Lumyzbcafoj-Wk Syr] predniSONE [Deltasone] 20 mg PO QDAY #5 tab 06/27/18 Unknown Rx Naproxen [Naprosyn TAB] 500 mg PO BID #14 tablet 03/02/19 Unknown Rx metroNIDAZOLE [Flagyl] 500 mg PO Q8HR 7 Days #21 tablet 03/02/19 Unknown Rx Famotidine [Pepcid] 20 mg PO BID #14 tablet 03/19/19 Unknown Rx HYDROcodone/APAP 5-325 [[place] 1 each PO Q6HR PRN #10 tablet 03/19/19 Unknown Rx 5-325 mg TAB] Cyclobenzaprine [Flexeril] 10 mg PO TID PRN #20 tablet 05/13/19 Unknown Rx HYDROcodone/APAP 5-325 [[place] 1 each PO Q6HR PRN #10 tablet 05/13/19 Unknown Rx 5/325] Ibuprofen [Motrin 800 MG tab] 800 mg PO TID 5 Days #15 tablet 05/13/19 Unknown Rx Amoxicillin/Potassium Clav 1 each PO BID #14 tablet 12/28/19 Unknown Rx [Augmentin 875-125 Tablet] traMADoL [Ultram 50 MG tab] 50 mg PO TID #20 tablet 03/24/20 Unknown Rx Allergies Allergy/AdvReac Type Severity Reaction Status Date / Time No Known Allergies Allergy Verified 03/06/20 09:11 ED Review of Systems ROS: Stated complaint: ABD PAIN Other details as noted in HPI Comment: All other systems reviewed and negative ED Past Medical Hx - Past Medical History Hx Hypertension: No Hx Congestive Heart Failure: No Hx Diabetes: No Hx Deep Vein Thrombosis: No Hx Renal Disease: No Hx Sickle Cell Disease: No Hx Seizures: No Hx Asthma: Yes Hx COPD: No Hx HIV: No Additional medical history: Anemia - Surgical History Additional Surgical History: csection - Social History Smoking Status: Never Smoker Substance Use Type: None - Medications Home Medications: Home Medications Medication Instructions Recorded Confirmed Last Taken Type Ondansetron [Zofran] 4 mg PO Q6HR PRN #12 tablet 10/27/13 06/16/14 03/06/14 08:00 Rx Ferrous Sulfate [Feosol 325 MG tab] 325 mg PO BID #60 tablet 06/16/14 Unknown Rx Ibuprofen [Motrin] 800 mg PO Q8H PRN #30 tablet 06/16/14 Unknown Rx Cgx902/Iron Fum/Folic/Docusate 1 each PO QDAY #30 tablet 06/16/14 Unknown Rx [ 19 Tablet] Acetaminophen/Codeine [Tylenol 1 tab PO Q6H PRN #20 tab 09/24/14 Unknown Rx /Codeine # 3 tab] Amoxicillin/Potassium Clav 1 each PO BID #20 tablet 06/27/18 Unknown Rx [Augmentin 875-125 Tablet] Brompheniramine/Pseudoephed/Dm 10 ml PO TID #473 syrup 06/27/18 Unknown Rx [Hilezrgepu-Ukqugbalwbt-Xn Syr] predniSONE [Deltasone] 20 mg PO QDAY #5 tab 06/27/18 Unknown Rx Naproxen [Naprosyn TAB] 500 mg PO BID #14 tablet 03/02/19 Unknown Rx metroNIDAZOLE [Flagyl] 500 mg PO Q8HR 7 Days #21 tablet 03/02/19 Unknown Rx Famotidine [Pepcid] 20 mg PO BID #14 tablet 03/19/19 Unknown Rx HYDROcodone/APAP 5-325 [[place] 1 each PO Q6HR PRN #10 tablet 03/19/19 Unknown Rx 5-325 mg TAB] Cyclobenzaprine [Flexeril] 10 mg PO TID PRN #20 tablet 05/13/19 Unknown Rx HYDROcodone/APAP 5-325 [[place] 1 each PO Q6HR PRN #10 tablet 05/13/19 Unknown Rx 5/325] Ibuprofen [Motrin 800 MG tab] 800 mg PO TID 5 Days #15 tablet 05/13/19 Unknown Rx Amoxicillin/Potassium Clav 1 each PO BID #14 tablet 12/28/19 Unknown Rx [Augmentin 875-125 Tablet] traMADoL [Ultram 50 MG tab] 50 mg PO TID #20 tablet 03/24/20 Unknown Rx ED Physical Exam - General Limitations: No Limitations General appearance: alert, in no apparent distress - Head Head exam: Present: atraumatic, normocephalic - Eye Eye exam: Present: normal appearance - ENT ENT exam: Present: mucous membranes moist - Neck Neck exam: Present: normal inspection - Respiratory Respiratory exam: Present: normal lung sounds bilaterally. Absent: respiratory distress - Cardiovascular Cardiovascular Exam: Present: regular rate, normal rhythm. Absent: systolic murmur, diastolic murmur, rubs, gallop - GI/Abdominal GI/Abdominal exam: Present: soft, normal bowel sounds. Absent: distended, tenderness, guarding, rebound - External exam: Present: normal external exam Speculum exam: Present: normal speculum exam. Absent: vaginal discharge Bi-manual exam: Absent: cervical motion tendernes, adnexal tenderness, uterine enlargement, uterine tenderness - Extremities Exam Extremities exam: Present: normal inspection - Back Exam Back exam: Present: normal inspection - Neurological Exam Neurological exam: Present: alert, oriented X3 - Psychiatric Psychiatric exam: Present: normal affect, normal mood - Skin Skin exam: Present: warm, dry, intact, normal color. Absent: rash ED Medical Decision Making - Lab Data Result diagrams: 03/24/20 03:41 03/24/20 03:41 Laboratory Last Values WBC 6.8 K/mm3 (4.5-11.0) 03/24/20 03:41 RBC 4.19 M/mm3 (3.65-5.03) 03/24/20 03:41 Hgb 11.2 gm/dl (10.1-14.3) 03/24/20 03:41 Hct 34.3 % (30.3-42.9) 03/24/20 03:41 MCV 82 fl (79-97) 03/24/20 03:41 MCH 27 pg (28-32) L 03/24/20 03:41 MCHC 33 % (30-34) 03/24/20 03:41 RDW 16.5 % (13.2-15.2) H 03/24/20 03:41 Plt Count 367 K/mm3 (140-440) 03/24/20 03:41 Lymph % (Auto) 31.6 % (13.4-35.0) 03/24/20 03:41 [place] % (Auto) 8.7 % (0.0-7.3) H 03/24/20 03:41 Eos % (Auto) 3.5 % (0.0-4.3) 03/24/20 03:41 Baso % (Auto) 0.9 % (0.0-1.8) 03/24/20 03:41 Lymph # 2.2 K/mm3 (1.2-5.4) 03/24/20 03:41 [place] # 0.6 K/mm3 (0.0-0.8) 03/24/20 03:41 Eos # 0.2 K/mm3 (0.0-0.4) 03/24/20 03:41 Baso # 0.1 K/mm3 (0.0-0.1) 03/24/20 03:41 Seg Neutrophils % 55.3 % (40.0-70.0) 03/24/20 03:41 Seg Neutrophils # 3.8 K/mm3 (1.8-7.7) 03/24/20 03:41 Sodium 140 mmol/L (137-145) 03/24/20 03:41 Potassium 4.0 mmol/L (3.6-5.0) 03/24/20 03:41 Chloride 102.5 mmol/L (98-107) 03/24/20 03:41 Carbon Dioxide 26 mmol/L (22-30) 03/24/20 03:41 Anion Gap 16 mmol/L 03/24/20 03:41 BUN 7 mg/dL (7-17) 03/24/20 03:41 Creatinine 0.6 mg/dL (0.6-1.2) 03/24/20 03:41 Estimated GFR > 60 ml/min 03/24/20 03:41 BUN/Creatinine Ratio 12 % 03/24/20 03:41 Glucose 133 mg/dL (65-100) H 03/24/20 03:41 Calcium 9.0 mg/dL (8.4-10.2) 03/24/20 03:41 Total Bilirubin 0.40 mg/dL (0.1-1.2) 03/24/20 03:41 AST 22 units/L (5-40) 03/24/20 03:41 ALT 12 units/L (7-56) 03/24/20 03:41 Alkaline Phosphatase 67 units/L (35-129) 03/24/20 03:41 Total Protein 7.3 g/dL (6.3-8.2) 03/24/20 03:41 Albumin 4.1 g/dL (3.9-5) 03/24/20 03:41 Albumin/Globulin Ratio 1.3 % 03/24/20 03:41 Urine Color Yellow (Yellow) 03/24/20 04:42 Urine Turbidity Clear (Clear) 03/24/20 04:42 Urine pH 6.0 (5.0-7.0) 03/24/20 04:42 Ur Specific [place] 1.012 (1.003-1.030) 03/24/20 04:42 Urine Protein <15 mg/dl mg/dL (Negative) 03/24/20 04:42 Urine Glucose (UA) Neg mg/dL (Negative) 03/24/20 04:42 Urine Ketones Neg mg/dL (Negative) 03/24/20 04:42 Urine Blood Neg (Negative) 03/24/20 04:42 Urine Nitrite Neg (Negative) 03/24/20 04:42 Urine Bilirubin Neg (Negative) 03/24/20 04:42 Urine Urobilinogen < 2.0 mg/dL (<2.0) 03/24/20 04:42 Ur Leukocyte Esterase Neg (Negative) 03/24/20 04:42 Urine WBC (Auto) < 1.0 /HPF (0.0-6.0) 03/24/20 04:42 Urine RBC (Auto) 2.0 /HPF (0.0-6.0) 03/24/20 04:42 U Epithel Cells (Auto) 7.0 /HPF (0-13.0) 03/24/20 04:42 Urine Mucus Few /HPF 03/24/20 04:42 - Medical Decision Making This is a 40-year-old female who presents the ED with pelvic pain. All labs were reviewed and negative, urinalysis negative I discussed all findings with the patient. Given the patient was just treated for an STD and tested negative for all other STDs. Patient had a nontender abdomen. She was in no acute distress. Her vital signs were normal. Patient received pain control in the ED ports feeling better. I discussed with patient follow-up with [facility] as soon as possible for management of fibroids and reassessment Patient understand instructions given. - Differential Diagnosis UTI, STD, urinary fibroids, ovarian cyst Critical care attestation.: If time is entered above; I have spent that time in minutes in the direct care of this critically ill patient, excluding procedure time. ED Disposition Clinical Impression: Pelvic pain Disposition: - TO HOME OR SELFCARE Is pt being admited?: No Does the pt Need Aspirin: No Condition: Stable Instructions: Abdominal Pain (ED), Chronic Pelvic Pain in Women (ED) Additional Instructions: Make sure to follow up with the primary care physician as well as [employer] assistant principal as discussed. Take all your medications as you've been prescribed. If you have any worsening symptoms or develop new symptoms please return to ED immediately. Prescriptions: traMADoL [Ultram 50 MG tab] 50 mg PO TID #20 tablet Referrals: PRIMARY CARE, [Primary Care Provider] - 3-5 Days [facility] [Outside] - 3-5 Days [facility] [Provider Group] - 3-5 Days Forms: Work/School Release Form(ED) Time of Disposition: 08:10
[2020-03-24] MEDS ORDERED: traMADol 50 MG TAB PO ONE (08:03)
[2020-03-24 08:29] VITALS: BP 114/75
[2020-03-24 08:34] LABS: HCG Qualitative,Urine Negative (Negative)
== END 2020-03-24 08:48 | disposition home or self-care (01) ==
LOC: ED 03:19
DX: R10.2 Pelvic and perineal pain (principal); J45.909 Unspecified asthma, uncomplicated; Z98.890 Other specified postprocedural states; Z79.1 Long term (current) use of non-steroidal anti-inflammatories (NSAID); Z79.2 Long term (current) use of antibiotics; Z79.899 Other long term (current) drug therapy
CPT/HCPCS: 36415; 80053; 81001; 81025; 85025